=== PATIENT | male | born 1985 | race Caucasian/White ===

== ENCOUNTER 2021-01-07 20:36 | Emergency (ER) | payer MEDICAID ==
[~2021-01-07] VITALS: Ht 175.3 cm; Wt 69.5 kg
[2021-01-07] MEDS ORDERED: HYDROcodone/APAP 5/325 TABLET PO ONE (22:30)
[2021-01-07] MEDS ORDERED: IBUPROFEN 800 MG TABLET ONE (22:36)
[2021-01-07 22:58] VITALS: BP 126/80
[2021-01-07] MEDS ORDERED: IBUPROFEN 800 MG TABLET PO ONE (23:00)
--- NOTE | 2021-01-07 23:01 | NUR ---
PT IS A&O X4. VS STABLE. NO ACUTE DISTRESS. PT CALLED HIS MOTHER FOR A RIDE HOME. PT DISCHARGE PER LUIS Cowan NP.
== END 2021-01-07 23:03 | disposition home or self-care (01) ==
LOC: ED 22:30
DX: F41.1 Generalized anxiety disorder (principal); G89.29 Other chronic pain; M25.511 Pain in right shoulder; M79.621 Pain in right upper arm; R51.9 Headache, unspecified; F17.210 Nicotine dependence, cigarettes, uncomplicated; Z72.9 Problem related to lifestyle, unspecified
CPT/HCPCS: 99282; 99406

== ENCOUNTER 2021-01-08 16:52 | Emergency (ER) | payer MEDICAID ==
[~2021-01-08] VITALS: Ht 175.3 cm; Wt 72.0 kg
--- NOTE | 2021-01-08 16:59 | NUR ---
LATE ENTRY DUE TO PATIENT CARE: PATIENT BIB EMS WITH CHIEF C/O ANXIETY. PER EMS PATIENT WAS SEEN HERE YESTERDAY FOR ANXIETY AND PRESCRIBED KLONOPIN AND REFERRED TO PSYCHIATRIST. EMS STATES PATIENT AND MOM WERE ON THEIR WAY TO [facility]IATRI[facility] TODAY AND AFTER ARRIVING AT APPOINTMENT PATIENT WAS UNRESPONSIVE. UPON ARRIVAL [facility] WAS ABLE TO WAKE PATIENT UP WITH STERNAL RUB. PATIENT REPORTED ONLY TAKING "3 KLONOPIN TODAY." PER MOM PATIENT HAS ONLY SLEPT 40 MINUTES IN THE LAST 3 DAYS, AND REPORTS PATIENT IS "PULLING UP CARPET FIBERS AND SNORTING THEM." VSS EN ROUTE, NO INTERVENTIONS EN ROUTE. UPON ASSESSMENT PATIENT IS TALKING FAST, GOING OFF ON TANGENTS, KEEPS SAYING "I HATE MY MOM, SHE IS JUST TRYING TO GET INTO MY BUSINESS, I DON'T WANT TO EVER SEE HER AGAIN. I WASN'T TRYING TO SNIFF THE CARPET I WAS TEARING UP THE CARPET TRYING TO FIX THE FLOOR." ALL PATIENT BELONGINGS TAKEN AND LOCKED IN CABINET, GARAGE DOORS DOWN, SITTER IN LINE OF SIGHT.
--- NOTE | 2021-01-08 17:18 | NUR ---
ERPA AT BEDSIDE FOR EVALUATION.
--- NOTE | 2021-01-08 17:40 | NUR ---
JASWANT JEAN AT BEDSIDE FOR EVALUATION.
--- NOTE | 2021-01-08 18:20 | NUR ---
JASWANT JEAN BACK AT BEDSIDE TO DISCUSS POC AND DISCHARGE.
[2021-01-08] MEDS ORDERED: OLANZAPINE 10 MG INJ IM ONE (18:28)
[2021-01-08] MEDS ORDERED: OLANZAPINE 10 MG INJ IM PRN (18:30)
--- NOTE | 2021-01-08 18:36 | NUR ---
PATIENT USED PHONE IN HALLWAY TO CALL FATHER, SITTER AT SIDE. COFFEE AND PEANUT BUTTER AND JELLY SANDWICH PROVIDED TO PATIENT.
--- NOTE | 2021-01-08 18:54 | NUR ---
REPORT TO RIN SCHROEDER FOR TRANSFER OF PATIENT CARE.
[2021-01-08 18:58] LABS: BASOPHILS % (AUTO) 1 % (0-1); EOSINOPHILS % (AUTO) 2 % (1-7); LYMPHOCYTES % (AUTO) 34 % (22-44); MEAN CORPUSCULAR HEMOGLOBIN 31.4 pg (27.5-34.5); MEAN CORPUSCULAR HGB CONC 33.8 g/dL (33.2-36.2); MEAN PLATELET VOLUME 7.4 fL (7.4-10.4); MONOCYTES % (AUTO) 12 % (2-9); NEUTROPHILS % (AUTO) 51 % (42-75); PLATELET COUNT 293 x10^3/uL (130-400); RED BLOOD COUNT 4.83 x10^6/uL (4.38-5.82); RED CELL DISTRIBUTION WIDTH 13.5 % (9.4-14.8)
[2021-01-08] MEDS ORDERED: NICOTINE 21 MG/24 HR PATCH.TD24 TD ONE (19:00)
[2021-01-08 19:13] LABS: ALBUMIN 4.2 g/dL (3.4-5.0); ANION GAP 8 mmol/L (5-15); CALCIUM 9.2 mg/dL (8.5-10.1); CHLORIDE 105 mmol/L (98-107); CREATININE 1.14 mg/dL (0.7-1.3)
[2021-01-08 19:16] LABS: SALICYLATE LEVEL < 1.7 mg/dL (2.8-20.0)
[2021-01-08] MEDS ORDERED: NICOTINE 21 MG/24 HR PATCH.TD24 ONE (19:24)
[2021-01-08] MEDS ORDERED: IBUPROFEN 600 MG TABLET ONE (19:24)
[2021-01-08 19:28] LABS: MD NO
[2021-01-08] MEDS ORDERED: IBUPROFEN 600 MG TABLET PO ONE (19:30)
--- NOTE | 2021-01-08 19:37 | NUR ---
Pt up standing in room. Wanting xanax and dilaudid. Provider aware. Motrin and 1mg xanax given. Sitter outside room with patient. Pt aware he is on a hold. Pt steady on feet. Pt making phone call. Pt free of harm. Will continue to monitor.
--- NOTE | 2021-01-08 19:43 | NUR ---
Pt back settled in bed. Warm blankets given. TV remote give. Sitter outside room. Will monitor.
--- NOTE | 2021-01-08 20:17 | NUR ---
Pt provided sandwhich and drink. Sitter remains outside room. Will monitor.
[2021-01-08] MEDS ORDERED: ARIPIPRAZOLE 2 MG TABLET PO SCH (21:00)
--- NOTE | 2021-01-08 21:34 | NUR ---
Mutiple attemtps to get pt to provide UA. Pt unable to give UA. St cath for urine done with steirle technique. UA sent to lab. Pt tolerated well.
[2021-01-08 21:41] LABS: MICROSCOPIC NOT IND
[2021-01-08 21:52] LABS: AMPHETAMINE SCREEN, URINE Positive (Negative); BARBITURATE SCREEN, URINE Negative (Negative); BENZODIAZEPINE SCREEN, URINE Positive (Negative); CANNABINOID SCREEN, URINE Positive (Negative); COCAINE SCREEN, URINE Negative (Negative); METHADONE SCREEN, URINE Negative (Negative); OPIATE SCREEN, URINE Negative (Negative)
--- NOTE | 2021-01-08 22:41 | NUR ---
Accepted to U after negative covid.
--- NOTE | 2021-01-08 22:46 | NUR ---
Pt calm in bed, U came to evaluate pt. COVID swab sent. [place] juice given. Ready for transport.
[2021-01-08 23:23] VITALS: BP 104/71
[2021-01-09] MEDS ORDERED: DULOXETINE 20 MG CAPSULE.DR PO SCH (09:00)
== END 2021-01-08 23:38 ==
LOC: ED 18:48
DX: F41.1 Generalized anxiety disorder (principal); F23 Brief psychotic disorder; Z20.822 Contact with and (suspected) exposure to COVID-19
CPT/HCPCS: 36415; 80048; 80143; 80179; 80307; 80320; 81003; 82040; 85025; 87426; 99285; G0480

== ENCOUNTER 2021-01-08 23:03 | Inpatient (IN) | payer MEDICAID ==
[~2021-01-08] VITALS: Ht 175.3 cm; Wt 72.0 kg
[2021-01-08] MEDS: ARIPIPRAZOLE 2 MG TABLET PO SCH (23:30)
[2021-01-08] MEDS: DIVALPROEX 500 MG TABLET.DR PO SCH (23:30)
[2021-01-08] MEDS ORDERED: OLANZAPINE 10 MG INJ IM PRN (23:30)
[2021-01-08] MEDS ORDERED: BISACODYL 10 MG SUPP PR PRN (23:30)
[2021-01-08] MEDS ORDERED: DOCUSATE 100 MG CAPSULE PO PRN (23:30)
[2021-01-08] MEDS ORDERED: POLYETHYLENE GLYCOL 17 GM PACKET PO PRN (23:30)
[2021-01-09 00:10] VITALS: BP 119/72
[2021-01-09] MEDS: LORazepam 1MG TABLET PO PRN ×2 (00:51→08:37)
[2021-01-09] MEDS: ACETAMINOPHEN 325 MG TABLET PO PRN (01:41)
[2021-01-09 07:26] VITALS: BP 115/72
[2021-01-09] MEDS: DULOXETINE 20 MG CAPSULE.DR PO SCH (08:33)
[2021-01-09] MEDS: DIVALPROEX 500 MG TABLET.DR PO SCH ×3 (08:34→22:12)
[2021-01-09] MEDS ORDERED: ALPRazolam 1MG TAB PO PRN (09:00)
[2021-01-09] MEDS: IBUPROFEN 600 MG TABLET PO PRN ×2 (10:12→22:16)
[2021-01-09] MEDS ORDERED: OLANZAPINE 10 MG TABLET PO PRN (15:30)
[2021-01-09] MEDS: NICOTINE 21 MG/24 HR PATCH.TD24 TD SCH ×2 (15:30→22:26)
[2021-01-09] MEDS: ARIPIPRAZOLE 2 MG TABLET PO SCH (22:12)
[2021-01-09] MEDS: ALPRazolam 1MG TAB PO PRN (23:39)
[2021-01-10] MEDS: DULOXETINE 20 MG CAPSULE.DR PO SCH (07:24)
[2021-01-10] MEDS: DIVALPROEX 500 MG TABLET.DR PO SCH ×3 (07:25→21:31)
[2021-01-10] MEDS: ALPRazolam 1MG TAB PO PRN ×2 (07:25→15:57)
[2021-01-10] MEDS: NICOTINE 21 MG/24 HR PATCH.TD24 TD SCH (07:27)
[2021-01-10] MEDS: IBUPROFEN 600 MG TABLET PO PRN ×3 (07:30→21:31)
[2021-01-10 07:37] VITALS: BP 111/75
[2021-01-10 07:54] LABS: ALBUMIN 3.4 g/dL (3.4-5.0)
[2021-01-10 08:24] LABS: BILIRUBIN, DIRECT 0.1 mg/dL (0.1-0.2); BILIRUBIN,INDIRECT 0.2 mg/dL (0.0-2.0); BILIRUBIN,TOTAL 0.3 mg/dL (0.2-1.0); CHOL/HDL RATIO 2.3; TOTAL PROTEIN 5.9 g/dL (6.4-8.2)
[2021-01-10 08:25] LABS: FREE T4 (FREE THYROXINE) 1.16 ng/dL (0.76-1.46); LDL/HDL RATIO 0.9 (0.5-3.0)
[2021-01-10] MEDS: GABAPENTIN 300 MG CAPSULE PO SCH (21:31)
[2021-01-10] MEDS: ARIPIPRAZOLE 2 MG TABLET PO SCH (21:31)
[2021-01-10] MEDS: HYDROCORTISONE CRM 0.5%, 30GM TP SCH (21:49)
[2021-01-11] MEDS: ALPRazolam 1MG TAB PO PRN ×3 (01:08→16:40)
[2021-01-11 07:15] VITALS: BP 114/75
[2021-01-11] MEDS: DULOXETINE 20 MG CAPSULE.DR PO SCH (08:27)
[2021-01-11] MEDS: DIVALPROEX 500 MG TABLET.DR PO SCH ×3 (08:27→20:46)
[2021-01-11] MEDS: NICOTINE 21 MG/24 HR PATCH.TD24 TD SCH (08:27)
[2021-01-11] MEDS: GABAPENTIN 300 MG CAPSULE PO SCH ×3 (08:27→20:46)
[2021-01-11] MEDS: IBUPROFEN 600 MG TABLET PO PRN ×2 (08:40→16:40)
[2021-01-11] MEDS: HYDROCORTISONE CRM 0.5%, 30GM TP SCH ×2 (14:36→20:48)
[2021-01-11] MEDS ORDERED: NICO-587 TD (15:35)
[2021-01-11] MEDS ORDERED: ARIP2TAB2 PO (15:35)
[2021-01-11] MEDS ORDERED: DIVA-61 PO (15:35)
[2021-01-11] MEDS ORDERED: DULO20CA18 PO (15:35)
[2021-01-11 19:28] VITALS: BP 146/80
[2021-01-11] MEDS: ARIPIPRAZOLE 2 MG TABLET PO SCH (20:46)
[2021-01-11] MEDS: ACETAMINOPHEN 325 MG TABLET PO PRN (20:46)
[2021-01-12] MEDS: ALPRazolam 1MG TAB PO PRN (05:24)
[2021-01-12] MEDS: IBUPROFEN 600 MG TABLET PO PRN (05:24)
[2021-01-12 07:43] VITALS: BP 106/72
[2021-01-12] MEDS: DULOXETINE 20 MG CAPSULE.DR PO SCH (08:35)
[2021-01-12] MEDS: NICOTINE 21 MG/24 HR PATCH.TD24 TD SCH (08:35)
[2021-01-12] MEDS: GABAPENTIN 300 MG CAPSULE PO SCH (08:35)
[2021-01-12] MEDS: DIVALPROEX 500 MG TABLET.DR PO SCH (08:35)
== END 2021-01-12 10:05 | disposition home or self-care (01) | DRG 750 ==
LOC: 3E 23:41
PROVIDERS: ADMIT Psychiatry & Neurology Psychosomatic Medicine; ATTEND Psychiatry & Neurology Psychosomatic Medicine
DX: F25.9 Schizoaffective disorder, unspecified (principal); F13.239 Sedative, hypnotic or anxiolytic dependence with withdrawal, unspecified; F14.10 Cocaine abuse, uncomplicated; F41.0 Panic disorder [episodic paroxysmal anxiety]; F41.1 Generalized anxiety disorder; F10.21 Alcohol dependence, in remission; F17.210 Nicotine dependence, cigarettes, uncomplicated; Z79.899 Other long term (current) drug therapy
CPT/HCPCS: 36415; 80061; 80076; 82607; 84439; 84443; 93005

== ENCOUNTER 2021-02-02 06:29 | Emergency (ER) | payer MEDICAID ==
[~2021-02-02] VITALS: Ht 175.3 cm; Wt 76.6 kg
[~2021-02-02 06:29] MED LIST: ARIP2TAB2 PO; DIVA-61 PO; DULO20CA18 PO; NICO-587 TD
[2021-02-02 07:37] LABS: BASOPHILS % (AUTO) 1 % (0-1); EOSINOPHILS % (AUTO) 1 % (1-7); LYMPHOCYTES % (AUTO) 28 % (22-44); MEAN CORPUSCULAR HEMOGLOBIN 31.5 pg (27.5-34.5); MEAN CORPUSCULAR HGB CONC 33.8 g/dL (33.2-36.2); MEAN PLATELET VOLUME 8.2 fL (7.4-10.4); MONOCYTES % (AUTO) 10 % (2-9); NEUTROPHILS % (AUTO) 60 % (42-75); PLATELET COUNT 217 x10^3/uL (130-400); RED BLOOD COUNT 4.64 x10^6/uL (4.38-5.82); RED CELL DISTRIBUTION WIDTH 14.2 % (9.4-14.8)
[2021-02-02 07:41] LABS: MICROSCOPIC NOT IND
[2021-02-02 07:45] LABS: MD NO
[2021-02-02 07:49] LABS: ALANINE AMINOTRANSFERASE 26 U/L (12-78); ALBUMIN 3.4 g/dL (3.4-5.0); ANION GAP 7 mmol/L (5-15); CALCIUM 8.6 mg/dL (8.5-10.1); CHLORIDE 109 mmol/L (98-107); CREATININE 0.99 mg/dL (0.7-1.3)
[2021-02-02 07:51] LABS: ALKALINE PHOSPHATASE 61 U/L (45-117); BILIRUBIN,TOTAL 0.3 mg/dL (0.2-1.0); TOTAL PROTEIN 6.1 g/dL (6.4-8.2)
[2021-02-02 07:52] LABS: SALICYLATE LEVEL < 1.7 mg/dL (2.8-20.0)
[2021-02-02 08:01] LABS: AMPHETAMINE SCREEN, URINE Negative (Negative); BARBITURATE SCREEN, URINE Negative (Negative); BENZODIAZEPINE SCREEN, URINE Negative (Negative); CANNABINOID SCREEN, URINE Positive (Negative); COCAINE SCREEN, URINE Negative (Negative); METHADONE SCREEN, URINE Negative (Negative); OPIATE SCREEN, URINE Negative (Negative)
--- NOTE | 2021-02-02 09:30 | NUR ---
PT WALKING AROUND ROOM AND SITTING ON GURNEY. MAYDA STALLINGS SEEN BY
--- NOTE | 2021-02-02 10:12 | NUR ---
MEDICATED PER ORDERS, ORDERED MEAL TRAY, PT PACING, DISORGNAIZED THOUGHTS. COOPERATIVE AND PLEASANT. WAITING FOR BED OPERATOR TO SEE
--- NOTE | 2021-02-02 10:47 | NUR ---
SEEN BY JACOB MICHAUD
[2021-02-02] MEDS ORDERED: ALPRazolam 1MG TAB PO ONE (11:00)
[2021-02-02 11:34] VITALS: BP 147/95
--- NOTE | 2021-02-02 11:34 | NUR ---
Patient given discharge instructions and they have confirmed that they understand the instructions. Patient ambulatory with steady gait.
== END 2021-02-02 11:44 | disposition home or self-care (01) ==
LOC: ED 07:43
DX: F28 Other psychotic disorder not due to a substance or known physiological condition (principal)
CPT/HCPCS: 36415; 80053; 80299; 80307; 80320; 80329; 81003; 85025; 99284; G0480